=== PATIENT | female | born 1950 | race Caucasian/White ===

== ENCOUNTER 2018-11-22 09:55 | Outpatient (REF) | payer MEDICARE, SELFPAY ==
[2018-11-22 22:00] LABS: Absolute Basophil Count 0.03 k/cumm (0.0-0.2); Absolute Eosinophil Count 0.08 k/cumm (0.0-0.7); Absolute Lymphocyte Count 1.08 k/cumm (1.2-3.4); Absolute Monocyte Count 0.35 k/cumm (0.11-0.7); Absolute Neutrophil Count 1.76 k/cumm (1.2-6.7); Basophils % 0.9; Eosinophils % 2.4; HCT 40.4 % (36.0-46.0); HGB 13.6 g/dL (12.0-15.5); Lymphocytes % 32.7; Mean Corp. HGB Concentration 33.7 g/dL (32.0-36.0); Mean Corpuscular Hemoglobin 32.5 pg (27.0-33.0); Mean Corpuscular Volume 96.4 fL (80-95); Mean Platelet Volume 12.2 fL (8.0-11.0); Monocytes % 10.6; Neutrophils % 53.4; Platelet Count 183 x1000/uL (130-400); RBC 4.19 m/cumm (4.00-5.20); RBC Distribution Width 13.9 % (11.7-14.6)
[2018-11-22 22:39] LABS: ALT 28 U/L (12-78); AST 25 U/L (15-37); Albumin 3.6 g/dL (3.4-5.0); Alkaline Phosphatase 68 U/L (46-116); Anion Gap 11.4 mmol/L (3-11); BUN 16 mg/dL (7-18); Bilirubin, Total 0.6 mg/dL (0.2-1.0); CO2 26.6 mmol/L (21.0-32.0); CREATININE 0.59 mg/dL (0.55-1.02); Calculated LDL 121; Chloride 105 mmol/L (98-107); Cholesterol 224 mg/dL (50-200); Glucose 84 mg/dL (70-100); HDL Cholesterol 88 mg/dL (40-60); Sodium 143 mmol/L (136-145); Total Protein 6.7 g/dL (6.4-8.2); Triglyceride 79 mg/dL (30-150)
== END 2018-11-22 10:15 ==
LOC: NCHCN 09:55
PROVIDERS: PCP Family Medicine; Visit Provider Family Medicine
DX: R10.31 Right lower quadrant pain (principal); E78.89 Other lipoprotein metabolism disorders; M25.551 Pain in right hip; M48.061 Spinal stenosis, lumbar region without neurogenic claudication; Z78.0 Asymptomatic menopausal state
CPT/HCPCS: 80053; 80061; 83721; 85025

== ENCOUNTER 2021-10-15 16:09 | Outpatient (REF) | payer MEDICARE, SELFPAY ==
[2021-10-15 17:02] LABS: AST 30 U/L (15-37); Albumin 4.1 g/dL (3.4-5.0); Alkaline Phosphatase 61 U/L (46-116); BUN 15 mg/dL (7-18); Bilirubin, Total 0.7 mg/dL (0.2-1.0); CREATININE 0.6 mg/dL (0.55-1.02); Calcium 8.7 mg/dL (8.5-10.1); Calculated LDL 124 mg/dL (<100); Chloride 105 mmol/L (98-107); Cholesterol 242 mg/dL (<200); Glucose 86 mg/dL (74-106); HDL Cholesterol 100 mg/dL (40-60); Potassium 4.1 mmol/L (3.5-5.1); Sodium 142 mmol/L (136-145); Triglyceride 93 mg/dL (<150)
[2021-10-15 17:38] LABS: ALT 36 U/L (14-59); Magnesium 2.1 mg/dL (1.8-2.4)
== END 2021-10-15 16:10 | disposition home or self-care (01) ==
LOC: NCHCN 16:09
PROVIDERS: PCP Family Medicine; Visit Provider Nurse Practitioner Family
DX: G47.62 Sleep related leg cramps (principal); E78.00 Pure hypercholesterolemia, unspecified
CPT/HCPCS: 80053; 80061; 83735

== ENCOUNTER 2022-10-16 12:08 | Outpatient (REF) | payer MEDICARE, SELFPAY ==
[2022-10-16 14:40] LABS: HCT 43.6 % (36.0-46.0); HGB 14.7 g/dL (11.2-15.7); MCH 32.5 pg (27.0-33.0); MCHC 33.7 % (32.0-36.0); MCV 96 fL (80-95); MPV 11.4 fL (8.0-11.0); Platelet Count 178 10^3/uL (130-400); RBC 4.53 10^6/uL (3.93-5.22); RDW 14.6 % (11.7-14.6); RDW-SD 51.2 fL; WBC 3.54 10^3/uL (4.4-10.8)
[2022-10-16 15:08] LABS: Calculated LDL 129 mg/dL (<100); Cholesterol 275 mg/dL (<200); HDL Cholesterol 130 mg/dL (40-60); TSH (W/Ref FT4) 2.14 uIU/mL (0.36-3.74); Triglyceride 83 mg/dL (<150)
== END 2022-10-16 12:09 | disposition home or self-care (01) ==
LOC: NCHCN 12:08
PROVIDERS: PCP Family Medicine; Visit Provider Registered Nurse
DX: R53.83 Other fatigue (principal); E78.00 Pure hypercholesterolemia, unspecified
CPT/HCPCS: 80061; 85027; 84443